=== PATIENT | female | born 1985 | race African-American/Black ===

== ENCOUNTER 2017-05-18 21:48 | Emergency (ER) | payer BC, SELFPAY ==
[2017-05-18] MEDS ORDERED: Promethazine HCl 25 MG/ML VIAL ONE (22:19)
[2017-05-18] MEDS ORDERED: Ketorolac Tromethamine 30 MG/ML VIAL ONE (22:19)
== END 2017-05-18 22:49 | disposition home or self-care (01) ==
LOC: MADERS 21:48
DX: G43.909 Migraine, unspecified, not intractable, without status migrainosus (principal); I10 Essential (primary) hypertension; E11.9 Type 2 diabetes mellitus without complications; Z79.4 Long term (current) use of insulin; Z79.899 Other long term (current) drug therapy
CPT/HCPCS: 96372; J1885; J2550

== ENCOUNTER 2022-08-05 19:14 | Emergency (ER) | payer BC, MEDICAID, SELFPAY ==
[2022-08-05] MEDS ORDERED: predniSONE 20 MG TAB ONE (19:55)
[2022-08-05] MEDS ORDERED: Ibuprofen 600 MG TAB ONE (19:55)
== END 2022-08-05 20:05 | disposition home or self-care (01) ==
LOC: MADERS 19:14
DX: S43.402A Unspecified sprain of left shoulder joint, initial encounter (principal); S43.401A Unspecified sprain of right shoulder joint, initial encounter; E11.9 Type 2 diabetes mellitus without complications; I10 Essential (primary) hypertension; Z79.84 Long term (current) use of oral hypoglycemic drugs; X50.0XXA Overexertion from strenuous movement or load, initial encounter
CPT/HCPCS: 99283; J7512

== ENCOUNTER 2024-06-16 12:23 | Emergency (ER) | payer SELFPAY | END 2024-06-16 13:16 | disposition home or self-care (01) | LOC: MADERS 12:23 | DX: J11.1 Influenza due to unidentified influenza virus with other respiratory manifestations (principal); E11.9 Type 2 diabetes mellitus without complications; I10 Essential (primary) hypertension; Z79.84 Long term (current) use of oral hypoglycemic drugs; Z79.899 Other long term (current) drug therapy; Z79.4 Long term (current) use of insulin | CPT/HCPCS: 99283 ==